=== PATIENT | female | born 1970 | race Caucasian/White ===

== ENCOUNTER 2017-04-25 12:33 | Emergency (ER) | payer OTHER ==
[2017-04-25 12:38] VITALS: BP 132/76
--- NOTE | 2017-04-25 14:55 | ED ---
Throat Pain/Nasal Congestion - History of Current Complaint Chief Complaint: EDEarPain Time Seen by Provider: 04/25/17 12:45 - Allergies/Home Medications Allergies/Adverse Reactions: Allergies Allergy/AdvReac Type Severity Reaction Status Date / Time Ciprofloxacin [From Cipro] Allergy Unknown Verified 04/13/17 11:13 Reaction Details Erythromycin Allergy Rash Verified 04/13/17 11:13 Lorazepam Allergy Agitation Verified 04/13/17 11:13 Sulfa Antibiotics Allergy Rash Verified 04/13/17 11:13 PMH/Surg Hx/FS Hx/Imm Hx Endocrine/Hematology History: Denies: Hx Diabetes Cardiovascular History: Reports: Hx Hypertension - FLUCUATES AT TIMES, NO MEDS Denies: Hx Pacemaker/ICD, Other Cardiovascular Problems/Disorders Respiratory History: Reports: Hx Sleep Apnea Denies: Hx Asthma, Other Respiratory Problems/Disorders GI History: Denies: Other GI Disorders History: Denies: Hx Dialysis, Hx Renal Disease Musculoskeletal History: Reports: Hx Back Problems Denies: Other Musculoskeletal History Sensory History: Reports: Hx Contacts or Glasses - glasses: at home Denies: Hx Hearing Aid Opthamlomology History: Reports: Hx Contacts or Glasses - glasses: at home Neurological History: Denies: Other Neuro Impairments/Disorders Psychiatric History: Reports: Hx Anxiety - ON MEDS, Hx Depression - ON MEDS, ALSO BIPOLAR, Hx Inpatient Treatment, Hx Community Mental Health Tx, Hx Schizophrenia, Hx Bipolar Disorder Denies: Hx Eating Disorder, Hx Panic Disorder - Surgical History Surgery Procedure, Year, and Place: 2 BACK SURGERIES, 2006, 2007, [facility]. BLADDER SLING, 2014. [place], [place] [facility] [place] Hx Anesthesia Reactions: No Infectious Disease History: Denies: Traveled Outside the US in Last 30 Days - Family History Known Family History: Positive: Unknown - Social History Alcohol Use: None Substance Use Type: Reports: None Smoking Status (MU): Heavy Every Day Tobacco Smoker Type: Cigarettes Amount Used/How Often: 1.5 PPD Have You Smoked in the Last Year: Yes Physical Exam Vital Signs On Initial Exam: Initial Vitals Temp Pulse Resp BP Pulse Ox 97.5 F 76 16 132/76 97 04/25/17 12:35 04/25/17 12:35 04/25/17 12:35 04/25/17 12:35 04/25/17 12:35 Diagnostics - Vital Signs Vital Signs Temp Pulse Resp BP Pulse Ox 04/25/17 12:35 97.5 F 76 16 132/76 97 - Laboratory Lab Statement: Any lab studies that have been ordered have been reviewed, and results considered in the medical decision making process. EENT Course/Dx - Diagnoses Provider Diagnoses: Otitis externa, Otitis media, left Discharge - Discharge Plan Condition: Stable Disposition: HOME Patient Education Materials: Otitis Externa (ED), Otitis Media (ED) Additional Instructions: Take prescribed oral antibiotic as directed until entire dose is finished. Use prescribed ear drop as directed for 7 days. Do not go swimming or submerge ears under water for the next 10 days. Do not stick anything into the ears. Follow up with PCP or ENT if symptoms persist or do not improve.
== END 2017-04-25 15:36 | disposition home or self-care (01) ==
LOC: ED 12:33
DX: H60.92 Unspecified otitis externa, left ear (principal); H66.92 Otitis media, unspecified, left ear; F17.210 Nicotine dependence, cigarettes, uncomplicated
CPT/HCPCS: 99281

== ENCOUNTER 2018-05-22 14:14 | Emergency (ER) | payer OTHER ==
--- OUTSIDE RECORDS SUMMARY | 2018-05-22 14:43 | XMS REPORT ---
:1970 External Reference #:[id number] Author Organization [employer] Address [address] [place] [address] Phone [phone] Care Team Providers Name Role Phone Troy Torres MD Primary Care Physician Unavailable Payers Type Date Identification Numbers Payment Provider Subscriber Commercial Policy Number: [id number] Miguel Cabrera Group Number: [id number] [address] PayID: [id number] [place] [address] Commercial Expires: 2015 PayID: [id number] [place]ink[place] Cabrera [address] [place] [address] [place] Expires: 2015 Policy Number: Medicaid Juan C Cabrera [id number] Group Name: 1 1 [address] PayID: [id number] [place] [address] Problems Date Description Provider Status Onset: 07/15/2017 Manic bipolar I disorder in full Troy Torres Active remission Elysia,FACP Onset: 07/15/2017 Bladder dysfunction Lauri Hernandez M.D.,FACP Onset: 07/15/2017 Osteoarthritis of multiple joints Lauri Hernandez M.D.,FACP Onset: 07/15/2017 Heavy cigarette smoker (20-39 Troy Torres, Active cigs/day) Elysia,FACP Family History Date Family Member(s) Problem(s) Comments General Heart Disease General Cancer Father due to Lung Cancer () Mother due to Ovarian Cancer () Mother Ovarian Cancer Social History Type Date Description Comments Marital Status Lives With Cigarette Use Heavy tobacco smoker (more than 10 cigarettes/day) Cigarette Use Current Cigarette Smoker 1 Pack Daily to 1.5 PPD ETOH Use 07/23/2017 Denies alcohol use Smoking Patient is a current smoker, smokes every day Recreational Drug Use 07/15/2017 Denies Drug Use Daily Caffeine 07/15/2017 Consumes on average 3 cups of regular coffee per day Exercise Type/Frequency Does not exercise Allergies, Adverse Reactions, Alerts Date Description Reaction Status Severity Comments 01/08/2016 Sulfa Antibiotics active 01/08/2016 Erythromycin active 07/15/2017 Ativan active Moderate Medications Medication Date Status Form Strength Qnty SIG Indications Ordering Provider Abilify / Active Tablets 5mg 1 by Unknown 0000 mouth every day Trileptal / Active Tablets 600mg 1 by Unknown 0000 mouth twice a day Myrbetriq / Active Unknown 0000 Meloxicam / Active Tablets 15mg 30tabs Take One Troy 0000 Tablet By Cain Torres Mouth M.DShemar,FACP Every Day Cymbalta / Active Caps DR 30mg 1 by Unknown 0000 Part mouth every day for 1 week then 2 daily ongoing Ciprofloxacin 03/24/ Hx Tablets 250mg 14tabs one by N39.0 Elizabeth HCL 2018 - mouth Varn, N.P. 0525/ twice a 2018 day for 7 days Pyridium 03/24/ Hx Tablets 100mg 9tabs one by N39.0 Elizabeth 2018 - mouth Varn, N.P. // three 2018 times a day for 3 days Cipro 01/13/ Hx Tablets 500mg 14tabs twice a N39.0 Ori 2018 - day Pachikara, 01/20/ M.D. 2018 Ofloxacin 11/28/ Hx Solution 0.3% 5ml 4 drops H60.8x2 Fannie (Otic) 2017 - in right Oakley, 12/08/ ear twice TELECINE OPERATOR 2018 a day Ultracet 01/07/ Hx Tablets 37.5-325mg 30tabs 1-2 tabs Debbie 2015 - by mouth Jimenez, 07/15/ every 4-6 M.D. 2017 hours as needed pain Oxybutynin / Hx Tablets ER 5mg 1 by Unknown Chloride ER 0000 - 24HR mouth 07/15/ every day 2016 Trazodone HCL / Hx Tablets 50mg 1 tablet Unknown 0000 - at 03/24/ bedtime 2017 as needed Medications Administered in Office Medication Date Status Form Strength Qnty SIG Indications Ordering Provider Depomedrol Administered Injection Mona 40MG 017 Luis A RPA-C Depomedrol Administered Injection Debbie 40MG 016 Elysia Jimenez Immunizations CPT Code Status Date Vaccine Lot # [id number] Given 07/15/2017 Pneumonia Vaccine [id number] Given 07/15/2017 Influenza Virus Vaccine, Quadrivalent, Split, [id number] Preservative Free Vital Signs Date Vital Result Comment 05/18/2018 Height 59 inches 4'11" Weight 160.00 lb Heart Rate 90 /min BP Systolic 122 mmHg BP Diastolic 82 mmHg O2 % BldC Oximetry 97 % BMI (Body Mass Index) 32.3 kg/m2 Last Menstrual Period [id number] 03/24/2018 Weight 162.50 lb Heart Rate 98 /min BP Systolic 120 mmHg BP Diastolic 68 mmHg Body Temperature 97.1 F O2 % BldC Oximetry 98 % 01/13/2018 Height 59 inches 4'11" Weight 154.50 lb Heart Rate 79 /min BP Systolic Sitting 120 mmHg BP Diastolic Sitting 78 mmHg O2 % BldC Oximetry 95 % BMI (Body Mass Index) 31.2 kg/m2 01/12/2018 Height 59 inches 4'11" Weight 153.00 lb Heart Rate 83 /min BP Systolic 128 mmHg BP Diastolic 77 mmHg Body Temperature 96.1 F BMI (Body Mass Index) 30.9 kg/m2 12/01/2017 Height 59 inches 4'11" Weight 153.00 lb Heart Rate 88 /min Respiratory Rate 19 /min Body Temperature 98.3 F Pain Level 5 BMI (Body Mass Index) 30.9 kg/m2 11/28/2017 Weight 155.00 lb Heart Rate 76 /min BP Systolic Sitting 119 mmHg BP Diastolic Sitting 80 mmHg Body Temperature 98.6 F O2 % BldC Oximetry 98 % 11/23/2017 Height 59 inches 4'11" Weight 153.00 lb Heart Rate 82 /min Respiratory Rate 18 /min Body Temperature 98.7 F Pain Level 5 BMI (Body Mass Index) 30.9 kg/m2 11/02/2017 Height 59 inches 4'11" Weight 153.00 lb Heart Rate 78 /min BP Systolic 128 mmHg BP Diastolic 82 mmHg Respiratory Rate 16 /min Body Temperature 98.4 F Pain Level 6 BMI (Body Mass Index) 30.9 kg/m2 07/15/2017 Height 59 inches 4'11" Weight 153.00 lb Heart Rate 84 /min BP Systolic Sitting 120 mmHg BP Diastolic Sitting 90 mmHg Body Temperature 97.6 F O2 % BldC Oximetry 98 % BMI (Body Mass Index) 30.9 kg/m2 02/23/2016 Height 59 inches 4'11" Weight 170.00 lb Respiratory Rate 18 /min Pain Level 1 BMI (Body Mass Index) 34.3 kg/m2 02/02/2016 Height 59 inches 4'11" Weight 174.00 lb Body Temperature 97.8 F BMI (Body Mass Index) 35.1 kg/m2 01/08/2016 Height 59 inches 4'11" Weight 174.00 lb Pain Level 6 BMI (Body Mass Index) 35.1 kg/m2 12/18/2015 Height 59 inches 4'11" Weight 174.00 lb Heart Rate 76 /min BP Systolic 123 mmHg BP Diastolic 74 mmHg BMI (Body Mass Index) 35.1 kg/m2 Results Test Date Test Result H/L Range Note Ua Routine 03/24/2018 Ua Specific [place] 1.015 Ua PH 6 Ua Color yellow Ua Appera clear Ua WBC neg Ua Protein trace Ua Glucose norm Ua Ketones neg Ua Bilirubin pos Ua Urobilinogen pos Ua Nitrite neg Ua Occult Blood trace Urine Culture And Sensitivities 03/24/2018 Urine Culture SEE RESULT BELOW 1, 2 Lipid Profile (Trig/Chol/HDL) 03/20/2018 Triglycerides 64 mg/dL 3 Cholesterol 175 mg/dL 4 HDL Cholesterol 48.1 mg/dL 5 LDL Cholesterol 114 mg/dL 6 Laboratory test finding 03/20/2018 Glucose 99 mg/dL 70-100 7 Ua Routine 01/13/2018 Ua Specific [place] 1.015 Ua PH 7 Ua Color yellow Ua Appera cloudy Ua WBC ++ Ua Protein ++ Ua Glucose normal Ua Ketones negative Ua Bilirubin positive Ua Urobilinogen 1 Ua Nitrite positive Ua Occult Blood about 50 1 [id number] 2 SEE RESULT BELOW Name: JUAN C CABRERA : [address]: Elizabeth Gomez NP Acct: [id number] Unit: [id number] AGE: 47 Location: [facility] Re03/24/18 SEX: F Status: REG REF SPEC: [id number] GUSTAVO: 03/24/18-[address]: Elizabeth Gomez NP REQ: [id number] RECD: 03/24/18 STATUS: COMP _ SOURCE: URINE SPDESC: ORDERED: Urine Culture COMMENTS: [id number] QUERIES: Urine Source: Random Procedure Result Reported Site Urine Culture Final 03/25/18- 1703 ML No growth of clinically significant organisms * ML - Main Lab . END OF REPORT DEPARTMENT OF PATHOLOGY, [address] [place] [address] Brady Chandra M.D. Director [facility] # [id number] 3 Desirable: <150 Borderline High: 150-199 High: 200-499 Very High: >500 4 Desirable: <200 Borderline High: 200-239 High: >239 5 Low: <40 Desirable: 40-60 High: >60 6 Desirable: <100 Near Optimal: 100-129 Borderline High: 130-159 High: 160-189 Very High: >189 7 FASTING 10 HOUR Procedures Date CPT Code Description Status 04/21/2018 Colonoscopy Completed 02/28/2018 Mammogram Completed 11/29/2017 50214 Nerve Conduction 03-04 Studies Completed 11/29/2017 94306 Needle Electromyography Each Extremity W/Related Completed Paraspinal Areas 11/02/2017 Injection, Carpal Tunnel Completed 07/18/2017 Mammogram Completed 01/20/2016 Carpal Tunnel Release Completed 01/20/2016 Carpal Tunnel Release Completed 12/18/2015 Injection, Carpal Tunnel Completed Encounters Type Date Location Provider CPT E/M Dx Office Visit 03/24/2018 [facility] Elizabeth Gomez, N.P. 47474 N39.0 11:40a - Denys Office Visit 01/13/2018 [facility] Ori Lee 80676 N39.0 11:40a - Anuel Torres M.D. Office Visit 01/12/2018 [facility] Debbie Jimenez 01704 G56.21 9:30a Of Kevin Naidu Office Visit 12/01/2017 [facility] Debbie Jimenez 76828 G56.01 9:15a Of Kevin Naidu G56.21 Office Visit 11/28/2017 2:10p [facility] Fannie Oakley, [address] H60.8x2 - [address] TELECINE OPERATOR Office Visit 11/23/2017 9:00a [facility] Debbie Jimenez, 03514 G56.01 Of Kevin Naidu Office Visit 11/02/2017 10:00a [facility] Monacasey Gunn, 06878 G56.03 Of Kevin BETTS G56.01 Office Visit 07/15/2017 1:00p [facility] Troy Torres, 85990 Z00.01 Medicine - [place] [place] Naidu,FACP F31.72 Z23 M17.0 Office Visit 01/08/2016 11:20a [facility] Debbie Jimenez, 05358 G56.01 Of Kevin Naidu G56.21 Office Visit 12/18/2015 11:00a [facility] Debbie Jimenez, 85161 G56.01 Of Kevin Naidu Plan of Care Future Appointment(s):07/19/2018 9:00 am - Troy Torres M.D.,FACP at [facility] - [place] [place]
[2018-05-22 16:11] LABS: Hematocrit 46 % (35-47); Hemoglobin 15.9 g/dl (12.0-16.0); Mean Corpuscular HGB Conc 35 g/dl (31-36); Mean Corpuscular Hemoglobin 31 pg (27-31); Mean Corpuscular Volume 89 fL (80-97); Mean Platelet Volume 7.4 um3 (7.4-10.4); Platelet Count 210 10^3/ul (150-450); Red Blood Count 5.16 10^6/ul (4.00-5.40); Red Cell Distribution Width 13 % (10.5-15); White Blood Count 7.2 10^3/ul (3.5-10.8)
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
[2018-05-22 16:31] LABS: EGFR Non-African American 71.7 (>60)
[2018-05-22 16:46] LABS: ABS Basophils 0 10^3/ul (0-0.2); ABS Neutrophils 4.8 10^3/ul (1.5-7.7); ABS Neutrophils 4.9 10^3/ul (1.5-7.7); Monocytes % 3 % (0-7)
--- NOTE | 2018-05-22 19:54 | RAD ---
INDICATION: Right hand and wrist injury COMPARISON: None TECHNIQUE: AP, lateral, and oblique views were obtained. FINDINGS: The bony structures, joint spaces, and soft tissues are normal for age. IMPRESSION: NO ACUTE FRACTURE.
--- NOTE | 2018-05-22 19:55 | RAD ---
INDICATION: Right wrist injury COMPARISON: None TECHNIQUE: AP, lateral, and oblique views were obtained. FINDINGS: There is no acute bony finding. There is mild deformity of the distal ulna which may be related to remote injury. There is a mild ulnar minus variant.. The soft tissues are intact. IMPRESSION: NO ACUTE BONY FINDINGS.
[2018-05-22] MEDS ORDERED: LORazepam TAB(*) 1 MG PO ONE (20:19)
[2018-05-22] MEDS ORDERED: diPHENhydraMINE PO* 50 MG PO ONE (20:19)
[2018-05-22 20:27] LABS: Urine Appearance Clear; Urine Blood Negative (Negative); Urine Color Yellow; Urine Ketones Negative (Negative); Urine Protein Negative (Negative); Urine Specific Gravity 1.011 (1.010-1.030); Urine Urobilinogen Positive (Negative)
[2018-05-22 21:56] VITALS: BP 141/86
== END 2018-05-22 22:01 | disposition home or self-care (01) ==
LOC: ED 14:14
DX: S60.211A Contusion of right wrist, initial encounter (principal); W23.0XXA Caught, crushed, jammed, or pinched between moving objects, initial encounter; Y92.9 Unspecified place or not applicable; F41.1 Generalized anxiety disorder; F31.9 Bipolar disorder, unspecified; F17.210 Nicotine dependence, cigarettes, uncomplicated; Z91.410 Personal history of adult physical and sexual abuse; Z79.899 Other long term (current) drug therapy; Z88.2 Allergy status to sulfonamides
CPT/HCPCS: 36415; 80053; 80307; 80320; 80329; 81003; 84443; 84702; 85025; 85060; 93005; 99283; A9270-GY; G0480

== ENCOUNTER 2018-06-07 22:51 | Emergency (ER) | payer OTHER ==
--- OUTSIDE RECORDS SUMMARY | 2018-06-07 23:44 | XMS REPORT ---
:1970 External Reference #:[id number] Author Organization [facility] Address [address] [place] [address] Phone [phone] Care Team Providers Name Role Phone Troy Torres MD Primary Care Physician Unavailable Payers Type Date Identification Numbers Payment Provider Subscriber Commercial Policy Number: [id number] Miguel Cabrera Group Number: [id number] [address] PayID: [id number] [place] [address] Commercial Expires: 2015 PayID: [id number] [place] [address] [place] [address] [employer] B Expires: 2015 Policy Number: Medicaid Juan C Cabrera [id number] Group Name: 1 1 [address] PayID: [id number] [place] [address] Problems Date Description Provider Status Onset: 07/15/2017 [...] Indications Ordering Provider Abilify / Active Tablets 30mg 1 by Unknown 0000 mouth every day Trileptal / Active Tablets 600mg 1 by Unknown 0000 mouth twice a day Meloxicam / Active Tablets 15mg 30tabs Take One [facility] 0000 Tablet By Laurita Gonzalez M.D.,FACP Every Day Cymbalta / Active Caps DR 30mg 1 by Unknown 0000 Part mouth every day for 1 week then 2 daily ongoing (pt states she is only taking 30mg) Myrbetriq / Active Tablets ER 50mg 1 by Unknown 0000 24HR mouth every day Depakote / Active Tablets DR 250mg 1 by Unknown 0000 mouth daily Ciprofloxacin 03/24/ Hx Tablets 250mg 14tabs one by N39.0 Elizabeth HCL 2017 - mouth Varn, N.P. 03/31/ twice a 2018 day for 7 days Pyridium 03/24/ Hx Tablets 100mg 9tabs one by N39.0 Leizabeth 2018 - mouth Varn, N.P. // three 2018 times a day for 3 days Cipro 01/13/ Hx Tablets 500mg 14tabs twice a N39.0 Ori 2018 - day Pachikara, 01/20/ BetoDShemar 2018 Ofloxacin 11/28/ Hx Solution 0.3% 5ml 4 drops H60.8x2 Fannie (Otic) 2017 - in right Oakley, 12/08/ ear twice AIR TABLE OPERATOR 2018 a day Ultracet 01/07/ Hx Tablets 37.5-325mg 30tabs 1-2 tabs Debbie 2016 - by mouth Barbara, every 4-6 M.D. 2017 hours as needed pain Oxybutynin / Hx Tablets ER 5mg 1 by Unknown Chloride ER 0000 - 24HR mouth every day 2016 Trazodone HCL 00/ Hx Tablets 50mg 1 tablet Unknown 0000 - at bedtime 2018 as needed Myrbetriq / Hx Unknown 0000 - 2017 Medications Administered in Office Medication Date Status Form Strength Qnty SIG Indications Ordering Provider Depomedrol Administered Injection Mona 40MG 017 Luis A [facility] Depomedrol Administered Injection Debbie 40MG 016 Elysia Jimenez Immunizations CPT Code Status Date Vaccine Lot # [id number] Given 07/15/2017 Pneumonia Vaccine [id number] Given 07/15/2017 Influenza Virus Vaccine, Quadrivalent, Split, [id number] Preservative Free Vital Signs Date Vital Result Comment 05/31/2018 Height 59 inches 4'11" Weight 154.00 lb Heart Rate 88 /min BP Systolic Sitting 120 mmHg BP Diastolic Sitting 78 mmHg Body Temperature 97.8 F O2 % BldC Oximetry 90 % BMI (Body Mass Index) 31.1 kg/m2 05/18/2018 Height 59 inches 4'11" Weight 160.00 lb Heart Rate 90 /min BP Systolic 122 mmHg BP Diastolic 82 mmHg O2 % BldC Oximetry 97 % BMI (Body Mass Index) 32.3 kg/m2 Last Menstrual Period [id number] 03/24/2018 Weight 162.50 lb Heart Rate 98 [...] Test Date Test Result H/L Range Note CBC Auto Diff 05/22/2018 White Blood Count 7.2 10^3/uL 3.5-10.8 Red Blood Count 5.16 10^6/uL 4.00-5.40 Hemoglobin 15.9 g/dL 12.0-16.0 Hematocrit 46 % 35-47 Mean Corpuscular Volume 89 fL 80-97 Mean Corpuscular Hemoglobin 31 pg 27-31 Mean Corpuscular HGB Conc 35 g/dL 31-36 Red Cell Distribution Width 13 % 10.5-15 Platelet Count 210 10^3/uL 150-450 Mean Platelet Volume 7.4 um3 7.4-10.4 Abs Neutrophils 4.9 10^3/uL 1.5-7.7 Comp Metabolic Panel 05/22/2018 Sodium 140 mmol/L 135-145 Potassium 4.0 mmol/L 3.5-5.0 Chloride 106 mmol/L 101-111 Co2 Carbon Dioxide 27 mmol/L 22-32 Anion Gap 7 mmol/L 2-11 Glucose 100 mg/dL 70-100 Blood Urea Nitrogen 6 mg/dL 6-24 Creatinine 0.85 mg/dL 0.51-0.95 BUN/Creatinine Ratio 7.1 Low 8-20 Calcium 9.8 mg/dL 8.6-10.3 Total Protein 7.0 g/dL 6.4-8.9 Albumin 4.4 g/dL 3.2-5.2 Globulin 2.6 g/dL 2-4 Albumin/Globulin Ratio 1.7 1-3 Total Bilirubin 0.40 mg/dL 0.2-1.0 Alkaline Phosphatase 83 U/L 34-104 Alt 12 U/L 7-52 Ast 16 U/L 13-39 Egfr Non- 71.7 >60 Egfr 86.7 >60 1 Laboratory test finding 05/22/2018 Acetaminophen < 15 g/mL 2 Alcohol < 10 mg/dL <10 Salicylate < 2.50 mg/dL <30 HCG 0.82 mIU/mL 3 TSH (Thyroid Stim Horm) 1.46 mcIU/mL 0.34-5.60 Urine Drug SCR ED & 05/22/2018 Amphetamine Ur Screen None Detected None Detect Pain Clinic Barbiturates Urine Screen None Detected None Detect Benzodiazepine Urine Screen None Detected None Detect Urine Cannabinoids Screen None Detected None Detect Urine Cocaine Screen None Detected None Detect Urine Opiates Screen None Detected None Detect Urine Phencyclidine Screen None Detected None Detect 4 Urinalysis Profile 05/22/2018 Urine Color Yellow Urine Appearance Clear Urine Specific Geismar 1.011 1.010-1.030 Urine pH 6.0 5-9 Urine Urobilinogen Positive Negative Urine Ketones Negative Negative Urine Protein Negative Negative Urine Leukocytes Negative Negative Urine Blood Negative Negative Urine Nitrite Negative Negative Urine Bilirubin Negative Negative Urine Glucose Negative Negative Manual Differential 05/22/2018 Immature Granulocytes 3 % 0-9 Neutrophil % 67 % 38-83 Band % 3 % 0-8 Lymphocytes % 27 % 25-47 Monocytes % 3 % 0-7 Eosinophils % 0 % 0-6 Basophil % 0 % 0-2 Abs Neutrophils 4.8 10^3/uL 1.5-7.7 Abs Lymphocytes 1.9 10^3/uL 1.0-4.8 Abs Monocytes 0.2 10^3/uL 0-0.8 Abs Eosinophils 0 10^3/uL 0-0.6 Abs Basophils 0 10^3/uL 0-0.2 RBC Morphology Normal Normal Laboratory test finding 05/22/2018 Pathologist Review (SEE NOTE) 5 Ua Routine 03/24/2018 Ua Specific Geismar 1.015 Ua PH 6 Ua Color yellow Ua Appera clear Ua WBC neg Ua Protein trace Ua Glucose norm Ua Ketones neg Ua Bilirubin pos Ua Urobilinogen pos Ua Nitrite neg Ua Occult Blood trace Urine Culture And Sensitivities 03/24/2018 Urine Culture SEE RESULT BELOW 6, 7 Lipid Profile (Trig/Chol/HDL) 03/20/2018 Triglycerides 64 mg/dL 8 Cholesterol 175 mg/dL 9 HDL Cholesterol 48.1 mg/dL 10 LDL Cholesterol 114 mg/dL 11 Laboratory test finding 03/20/2018 Glucose 99 mg/dL 70-100 12 Ua Routine 01/13/2018 Ua Specific Geismar 1.015 Ua PH 7 Ua Color yellow Ua Appera cloudy Ua WBC ++ Ua Protein ++ Ua Glucose normal Ua Ketones negative Ua Bilirubin positive Ua Urobilinogen 1 Ua Nitrite positive Ua Occult Blood about 50 1 Because ethnic data is not always readily available, this report includes an eGFR for both -Americans and non- Americans. The National Kidney Disease Education Program (NKDEP) does not endorse the use of the MDRD equation for patients that are not between the ages of 18 and 70, are , have extremes of body size, muscle mass, or nutritional status, or are non- or non-. According to the National Kidney Foundation, irrespective of diagnosis, the stage of the disease is based on the level of kidney function: Stage Description GFR(mL/min/1.73 m(2)) 1 Kidney damage with normal or decreased GFR 90 2 Kidney damage with mild decrease in GFR 60-89 3 Moderate decrease in GFR 30-59 4 Severe decrease in GFR 15-29 5 Kidney failure <15 (or dialysis) 2 Therapeutic concentration: <50 ug/mL Toxic concentration: >120 ug/mL 3 <5.0 Negative 5.0 - 25.0 Indeterminate (Repeat testing recommended after 72 hours) >25.0 Positive Perimenopausal women can display HCG levels of up to 20 mIU/mL 4 The urine specimen was tested at the listed cutoffs: Drug class test level (ng/mL) Amphetamines 500 Barbiturates 200 Benzodiazepine metabolites 200 Cocaine metabolites 150 Cannabinoids 50 Opiates 300 Pcp 25 Specimen was received without chain of custody. Results should be used for medical purposes only. 5 Normal smear. Reviewed by Chelsea Pelayo MD 6 [id number] 7 SEE RESULT BELOW Name: JUAN C CABRERA : [address]: Elizabeth Gomez NP Acct: [id number] Unit: [id number] AGE: 47 Location: [facility] Re03/24/18 SEX: F Status: REG REF SPEC: [id number] GUSTAVO: 03/24/18-[address]: Elizabeth Gomez NP REQ: [id number] RECD: 03/24/18 STATUS: COMP _ SOURCE: URINE SPDESC: ORDERED: Urine Culture COMMENTS: [id number] QUERIES: Urine Source: Random Procedure Result Reported Site Urine Culture Final 03/25/18- 1703 ML No growth of clinically significant organisms * ML - Main Lab . END OF REPORT DEPARTMENT OF PATHOLOGY, [address] [place] [address] Brady Chandra M.D. Director [facility] # [id number] Desirable: <150 Borderline High: 150-199 High: 200-499 Very High: >500 9 Desirable: <200 Borderline High: 200-239 High: >239 10 Low: <40 Desirable: 40-60 High: >60 11 Desirable: <100 Near Optimal: 100-129 Borderline High: 130-159 High: 160-189 Very High: >189 12 FASTING 10 HOUR Procedures Date CPT Code Description Status 04/21/2018 Colonoscopy Completed 02/28/2018 Mammogram Completed 11/29/2017 93162 Nerve Conduction 03-04 Studies Completed 11/29/2017 81653 Needle Electromyography Each Extremity W/Related Completed Paraspinal Areas 11/02/2017 Injection, Carpal Tunnel Completed 07/18/2017 Mammogram Completed 01/20/2016 Carpal Tunnel Release Completed 01/20/2016 Carpal Tunnel Release Completed 12/18/2015 Injection, Carpal Tunnel Completed Encounters Type Date Location Provider CPT E/M Dx Office Visit 05/18/2018 [facility] [place] [address] Z01.419 1:30p of [facility] Office Visit 03/24/2018 [facility] Internal Medicine Elizabeth Gomez, N.P. 07551 N39.0 11:40a - [place] Office Visit 01/13/2018 [facility] Internal Medicine Ori Sharp, 23182 N39.0 11:40a - [place] Brian Naidu Office Visit 01/12/2018 [facility] Debbie Jimenez, 41848 G56.21 9:30a Of Kevin Naidu Office Visit 12/01/2017 [facility] Debbie Jimenez 06359 G56.01 9:15a Of Kevin Naidu G56.21 Office Visit 11/28/2017 2:10p [facility] Internal Medicine Fannie Oakley, [address]83 H60.8x2 - [address] [address] AIR TABLE OPERATOR Office Visit 11/23/2017 9:00a [facility] Debbie Jimenez 10723 G56.01 Of Kevin Naidu Office Visit 11/02/2017 10:00a [facility] Mona Gunn 00161 G56.03 Of Kevin SAUNDERS-C G56.01 Office Visit 07/15/2017 1:00p [facility] Internal Troy Torres, 83691 Z00.01 Medicine - Tbselvin Torres M.D.,FACP F31.72 Z23 M17.0 Office Visit 01/08/2016 11:20a [facility] Debbie Jimenez 04598 G56.01 Of Kevin Naidu G56.21 Office Visit 12/18/2015 11:00a [facility] Debbie Jimenez 05478 G56.01 Of Kevin Naidu Plan of Care Future Appointment(s):07/19/2018 9:00 am - Troy Torres M.D.,FACP at [facility] Internal Medicine - [address]/31/2018 - Roz Avina RPA-CF31.72 Bipolar disord, in full remis, most recent episode hypomanicComments:Patient has appointment with prescriber in 2 days. Will order valproic acid level. Discuss changes in medications with Dr. Wheeler. No sign of acute intoxication today.G56.23 Lesion of ulnar nerve, bilateral upper limbsNew Orders:Wrist Splint LWrist Splint RComments:- Wear braces on your wrists at night.Follow up: Has follow up in July.
[2018-06-08 00:51] LABS: Urine Appearance Cloudy; Urine Blood 2+ (Negative); Urine Color Yellow; Urine Ketones Negative (Negative); Urine Protein Negative (Negative); Urine Red Blood Cell 3+(>10/hpf) (Absent); Urine Specific Gravity 1.005 (1.010-1.030); Urine Urobilinogen Negative (Negative); Urine White Blood Cell 3+(>20/hpf) (Absent)
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
[2018-06-08 01:07] LABS: Urine Appearance Cloudy; Urine Blood 2+ (Negative); Urine Color Yellow; Urine Ketones Negative (Negative); Urine Protein 1+(30 mg/dL) (Negative); Urine Red Blood Cell 3+(>10/hpf) (Absent); Urine Specific Gravity 1.006 (1.010-1.030); Urine Urobilinogen Negative (Negative); Urine White Blood Cell 3+(>20/hpf) (Absent)
[2018-06-08 01:34] VITALS: BP 141/74
== END 2018-06-08 01:33 | disposition home or self-care (01) ==
LOC: ED 22:51
DX: R33.9 Retention of urine, unspecified (principal); N81.10 Cystocele, unspecified; F17.210 Nicotine dependence, cigarettes, uncomplicated; F41.9 Anxiety disorder, unspecified; F32.9 Major depressive disorder, single episode, unspecified; Z79.899 Other long term (current) drug therapy; Z88.3 Allergy status to other anti-infective agents; Z88.2 Allergy status to sulfonamides
CPT/HCPCS: 81003; 81015; 99282

== ENCOUNTER 2020-10-16 18:43 | Observation (INO) ==
[2020-10-16] MEDS ORDERED: NS 0.9% 1000 ml BAG 1,000 ML IV SCH ×2 (19:15→19:30)
[2020-10-16] MEDS ORDERED: Ondansetron 4 mg VIAL 2 MG/ML 2 ml VIAL IV PRN (19:20)
[2020-10-16 19:34] LABS: Hematocrit 39 % (35-47); Hemoglobin 13.3 g/dL (12.0-16.0); Mean Corpuscular HGB Conc 34 g/dL (31-36); Mean Corpuscular Hemoglobin 30 pg (27-31); Mean Corpuscular Volume 89 fL (80-97); Mean Platelet Volume 7.5 fL (7.4-10.4); Platelet Count 226 10^3/uL (150-450); Red Cell Distribution Width 13 % (10-15); White Blood Count 16.2 10^3/uL (3.5-10.8)
[2020-10-16 19:38] LABS: Albumin 3.8 g/dL (3.2-5.2); Calcium 8.5 mg/dL (8.6-10.3); Potassium 3.8 mmol/L (3.5-5.0); Total Bilirubin 0.6 mg/dL (0.2-1.0)
[2020-10-16 19:44] LABS: Albumin/Globulin Ratio 1.7 (1-3); EGFR African American 89.7 (>60); EGFR Non-African American 74.1 (>60); Globulin 2.3 g/dL (2-4); Total Protein 6.1 g/dL (6.4-8.9)
[2020-10-16] MEDS ORDERED: Piperacillin/Tazobactam VIAL 3.375 GM in NS 0.9% 100 ml BAG 100 ML IVPB SCH (20:00)
[2020-10-16] MEDS ORDERED: Zosyn 3.375 gm X 1 dose, then dose per Pharmacy IV ONE (21:00)
[2020-10-17] MEDS: HYDROmorphone 0.5 MG/0.5 ML SYRINGE IV SLOW PU PRN ×3 (00:11→08:49)
[2020-10-17] MEDS ORDERED: Piperacillin/Tazobactam VIAL 3.375 GM in NS 0.9% 100 ml BAG 100 ML IVPB SCH (03:30)
[2020-10-17] MEDS ORDERED: DULoxetine DR 30 mg CAP PO SCH (09:00)
[2020-10-17] MEDS ORDERED: Mirabegron 25 mg ER TAB (NF) PO SCH (09:00)
[2020-10-17] MEDS ORDERED: fentaNYL 100 mcg/2 ml 50 MCG/ML VIAL ONE (09:56)
[2020-10-17] MEDS ORDERED: Lidocaine 2% PF 5 ML VIAL ONE (09:56)
[2020-10-17] MEDS ORDERED: Propofol 10 MG/ML 20 ML BTL ONE ×2 (09:56→11:51)
[2020-10-17] MEDS ORDERED: Bupivacaine 0.25% SDV 30 ML ONE (09:56)
[2020-10-17] MEDS ORDERED: Midazolam 2 mg/2 ml VIAL 1 mg/ml 2 ml VIAL (2 mg) ONE (09:57)
[2020-10-17] MEDS ORDERED: Rocuronium 50 mg VIAL 10 mg/ml 5 ml VIAL (50 mg) ONE (09:57)
[2020-10-17] MEDS ORDERED: Levalbuterol HFA INHALER MDI ONE (10:32)
[2020-10-17] MEDS ORDERED: HYDROmorphone 1 MG/1 ML SYRINGE ONE (10:34)
[2020-10-17] MEDS ORDERED: Dexamethasone IV 4 MG/ML VIAL 1 ml VIAL ONE (10:35)
[2020-10-17] MEDS ORDERED: Ondansetron 4 mg VIAL 2 MG/ML 2 ml VIAL ONE (10:35)
[2020-10-17] MEDS ORDERED: Naloxone 0.4 mg VIAL 0.4 mg/ml 1 ml VIAL IV PRN (11:00)
[2020-10-17] MEDS ORDERED: diPHENhydraMINE IV 50 MG/ML 1 ml VIAL (BENADRYL) IV PRN (11:00)
[2020-10-17] MEDS ORDERED: HYDROmorphone 1 MG/1 ML SYRINGE IV PRN (11:00)
[2020-10-17 13:17] VITALS: BP 113/69
== END 2020-10-17 14:05 | disposition home or self-care (01) ==
LOC: ED 18:43 → SSU 18:43
PROVIDERS: ADMIT Surgery Surgical Critical Care; ATTEND Surgery Surgical Critical Care

== ENCOUNTER 2024-08-14 17:46 | Inpatient (IN) ==
[2024-08-14] MEDS ORDERED: Droperidol 5 MG/2 ML 2 ML VIAL ONE (17:50)
[2024-08-14] MEDS: Droperidol 5 MG/2 ML 2 ML VIAL IM ONE ×2 (17:55→19:03)
[2024-08-14 19:53] LABS: ABS Basophils 0.1 10^3/uL (0.0-0.1); ABS Lymphocytes 1.4 10^3/uL (1.0-4.8); ABS Monocytes 0.4 10^3/uL (0.0-0.9); ABS Neutrophils 6.5 10^3/uL (1.5-7.6); Eosinophil % 0.1 %; Hematocrit 38.8 % (35-45); Hemoglobin 13.2 g/dL (11.5-14.3); Lymphocyte % 16.2 %; Mean Corpuscular Hemoglobin 29.5 pg (27-33); Mean Corpuscular Volume 86.6 fL (80-97); Mean Platelet Volume 7.3 fL (7.5-11.2); Platelet Count 233 10^3/uL (150-450); Red Blood Count 4.48 10^6/uL (3.63-4.92); Red Cell Distribution Width 13.2 % (12-17); White Blood Count 8.4 10^3/uL (3.8-11.8)
[2024-08-14 20:20] LABS: ALT 22 U/L (7-52); AST 24 U/L (13-39); Acetaminophen < 15 mcg/mL; Albumin 4.2 g/dL (3.2-5.2); Albumin/Globulin Ratio 1.8 (1-3); Alcohol, S < 13 mg/dL (<13); Alkaline Phosphatase 130 U/L (35-149); Anion Gap 9 mmol/L (2-16); Blood Urea Nitrogen 14 mg/dL (6-24); CO2 Carbon Dioxide 25 mmol/L (22-32); Calcium 9.7 mg/dL (8.6-10.3); Chloride 101 mmol/L (101-111); Creatinine, Serum 0.75 mg/dL (0.51-0.95); Globulin 2.4 g/dL (2-4); Glucose 101 mg/dL (70-100); Potassium 3.9 mmol/L (3.5-5.0); Salicylate < 2.50 mg/dL (<30); Sodium 135 mmol/L (135-145); Total Bilirubin 0.5 mg/dL (0.2-1.0); Total Protein 6.6 g/dL (6.4-8.9); eGFR CKD-EPI 95.1 (>60)
[2024-08-14 20:33] LABS: TSH Ultra Thyroid Stim Horm 1.09 mcIU/mL (0.34-5.60)
[2024-08-14 20:52] LABS: Urine Appearance Clear; Urine Bilirubin Negative (Negative); Urine Blood Negative (Negative); Urine Color Yellow; Urine Glucose Negative (Negative); Urine Ketones 1+ (Negative); Urine Nitrite Negative (Negative); Urine Protein Trace (Negative); Urine Specific Gravity 1.025 (1.002-1.030); Urine Urobilinogen Negative (Negative); Urine pH 5.5 (5.0-8.0)
[2024-08-14 21:22] LABS: Urine Benzodiazepine Screen None Detected (None Detect); Urine Cannabinoids Screen None Detected (None Detect); Urine Opiates Screen None Detected (None Detect)
[2024-08-15] MEDS ORDERED: Al Hydrox/Mg Hydrox/Simet LIQ 30 ML UDC PO PRN (02:32)
[2024-08-15] MEDS ORDERED: OLANZapine 10 mg TAB*ODT PO ONE (06:14)
[2024-08-15] MEDS ORDERED: LORazepam 2 mg VIAL 1 ml ONE ×2 (06:30→06:35)
[2024-08-15] MEDS ORDERED: Haloperidol 5 mg/ml SDV IV/IM 5 MG/ML AMP ONE (06:35)
[2024-08-15] MEDS: Haloperidol 5 mg/ml SDV IV/IM 5 MG/ML AMP IM ONE (06:47)
[2024-08-15] MEDS: LORazepam 2 mg VIAL 1 ml IM ONE (06:47)
[2024-08-15] MEDS ORDERED: CMC:Meloxicam 7.5 mg TAB (NF) PO PRN (08:53)
[2024-08-15] MEDS: Vitamin THERAPEUTIC TAB PO SCH (09:04)
[2024-08-15] MEDS ORDERED: OLANZapine 5 mg TAB *ODT PO PRN (13:13)
[2024-08-15] MEDS ORDERED: Nicotine GUM 4MG FRUIT FLAVOR PO PRN (16:35)
[2024-08-15] MEDS ORDERED: Nicotine Lozenge mini 4 MG LOZNG.MINI MT PRN (16:35)
[2024-08-15] MEDS ORDERED: Albuterol HFA INHALER 8 gm MDI INH PRN (16:37)
[2024-08-15] MEDS: Nicotine PATCH 21 MG/24 HR PATCH TRANSDERM SCH (18:20)
[2024-08-15] MEDS: DULoxetine DR 30 mg CAP PO SCH (20:19)
[2024-08-16 08:45] LABS: HDL Cholesterol 54.9 mg/dL
[2024-08-16] MEDS: CMC: Meloxicam 7.5 mg TAB (NF) PO SCH (08:46)
[2024-08-16 09:09] VITALS: BP 147/105
[2024-08-16] MEDS: DULoxetine DR 30 mg CAP PO SCH (11:03)
[2024-08-16] MEDS: LINACLOTIDE 145 MCG PO SCH ×2 (11:05→23:08)
[2024-08-17] MEDS: LINACLOTIDE 145 MCG PO SCH (08:37)
== END 2024-08-17 16:38 | disposition home or self-care (01) | DRG 753 ==
LOC: ED 17:46 → EDHOLD 08-15 02:15 → BSU 08-15 07:07
PROVIDERS: ADMIT Psychiatry & Neurology Psychiatry; ATTEND Psychiatry & Neurology Psychiatry